=== PATIENT | female | born 1950 | race Caucasian/White ===

== ENCOUNTER 2016-08-29 12:02 | Inpatient (IN) | payer BC ==
[~2016-08-29] VITALS: Ht 165.1 cm; Wt 87.3 kg
[~2016-08-29 12:02] MED LIST: ACYCLOVIR400 MG PO; ALLOPURINOL300 MG PO; AMLODIPINE BESYL5 MG PO; AUGMENTIN500 MG PO; BACTROBAN NASAL1 G1 BOTH NARES; CALTRATE 600 +1 EAC1 PO; CENTRUM SILVER1 EAC3 PO; CIPRO500 MG PO; CITALOPRAM HBR20 MG PO; COMPAZINE10 MG PO; CYANOCOBALAM1000 MCG PO; DICYCLOMINE HCL10 MG PO; DOXYCYCLINE HY100 MG PO; FLUCONAZOLE200 MG PO; HUMULIN R100 UNITS/ SC; LEVOTHYROXINE150 MCG PO; LITHIUM CARBON300 MG PO; LOPERAMIDE2 MG PO; METFORMIN HCL500 M1 PO; NOVOLIN,HU100 UNITS1 SC; OMEPRAZOLE20 MG PO; PREDNISONE20 MG PO; TRAMADOL HCL50 MG PO; VITAMIN D-32000 UNI2 PO; VITAMIN D2000 UNI1 PO; ZANTAC150 MG PO
[2016-08-29 15:26] LABS: HEMATOCRIT 29.7 % (36.0-46.0); MCH 32.5 PG (29.0-34.0); MCHC 31.6 G/DL (30.0-36.0); MCV 102.8 FL (83-99); MEAN PLAT.VOLUME 10.9 uM^3 (9.5-12.4); RBC DIS.WIDTH-SD 49.4 % (39-53); RED BLOOD COUNT 2.89 M/uL (3.80-5.20); WHITE BLOOD COUNT 4.2 K/uL (4.1-10.2)
[2016-08-29 15:30] LABS: CHLORIDE 101 mEq/L (99-109); POTASSIUM 3.4 mEq/L (3.7-5.4); SODIUM 137 mEq/L (136-147)
[2016-08-29 15:33] LABS: GLUCOSE 159 mg/dL (70-99)
[2016-08-29 15:34] LABS: ANION GAP 7 MEQ/L (2-14)
[2016-08-29 15:35] LABS: TOTAL BILIRUBIN 0.3 mg/dL (0.0-1.0)
[2016-08-29 15:36] LABS: ALKALINE PHOSPHATASE 71 IU/L (3-129); GFR ESTIMATE (CALCULATED) 44 mL/min/
[2016-08-29 15:37] LABS: UREA NITROGEN (BUN) 16 mg/dL (9-23)
[2016-08-29 16:16] LABS: ABS NEUTROPHIL COUNT 3.3; ANISOCYTOSIS 1+; ATYPICAL LYMPHOCYTE 3.5 %; BAND NEUTROPHILS 3.5 % (0-8.0); EOSINOPHIL ABS CT 0.1; EOSINOPHILS 2.6 % (0-5.0); HEMATOLOGY COMMENT 1 SN; INSTRUMENT ABS NEUTROPHIL CT 2.9 K/uL; LYMPHOCYTES 8.8 % (15.0-45.0); METAMYELOCYTES 0.9 %; OVALOCYTES 1+; PLATELET CLUMPS PRESENT - PLATELET COUNT APPEARS ADQ.; POLYCHROMASIA 1+; SCHISTOCYTES 1+; SEG.NEUTROPHILS 75.4 % (46.0-76.0); TEAR DROP CELLS 1+
[2016-08-29 16:42] LABS: C-REACTIVE PROTEIN 7.6 MG/L (0-10)
[2016-08-29] MEDS ORDERED: LITHIUM CARBON300 MG PO (18:44)
[2016-08-29] MEDS ORDERED: LEVO-T175 MCG PO (18:45)
[2016-08-29] MEDS ORDERED: METOPROLOL TART25 MG PO (18:47)
[2016-08-29] MEDS ORDERED: FUROSEMIDE20 MG PO (18:51)
[2016-08-29] MEDS ORDERED: ZYVOX600 MG PO (18:53)
[2016-08-30] VITALS (7 sets, daily range): BP systolic 108–150; BP diastolic 55–72
[2016-08-30 07:08] LABS: HEMATOCRIT 27.8 % (36.0-46.0); MCH 32.6 PG (29.0-34.0); MCHC 30.9 G/DL (30.0-36.0); MCV 105.3 FL (83-99); MEAN PLAT.VOLUME 11.3 uM^3 (9.5-12.4); RBC DIS.WIDTH-CV 12.9 % (11.8-14.6); RED BLOOD COUNT 2.64 M/uL (3.80-5.20); WHITE BLOOD COUNT 3.3 K/uL (4.1-10.2)
[2016-08-30 07:34] LABS: ANION GAP 9 MEQ/L (2-14); CHLORIDE 101 MEQ/L (99-109); GFR ESTIMATE (CALCULATED) 44 mL/min/; GLUCOSE 166 mg/dL (70-99); POTASSIUM 3.3 MEQ/L (3.7-5.4); SAMPLE HEMOLYSIS CHECK 0; SAMPLE ICTERIC CHECK 0; SAMPLE LIPEMIA CHECK 0; SODIUM 139 MEQ/L (136-147); UREA NITROGEN (BUN) 13 mg/dL (9-23)
[2016-08-30 07:36] LABS: PLATELET COUNT 123 K/uL (156-360)
[2016-08-30 11:24] LABS: ABS NEUTROPHIL COUNT 2.4; ANISOCYTOSIS 1+; EOSINOPHIL ABS CT 0.1; PLAT.SUFFICIENCY DECREASED; POIKILOCYTOSIS 1+
[2016-08-30 14:54] LABS: METH RESISTANT S AUREUS PCR NEGATIVE (NEGATIVE)
[2016-08-30 15:02] LABS: PROBE CHECK PASS; SPECIMEN PROCESSING CONTROL PASS
[2016-08-30 21:38] LABS: POINT-OF-CARE METER ID UU14162508
[2016-08-31 02:56] VITALS: BP 117/59
[2016-08-31 06:34] LABS: POINT-OF-CARE METER ID UU14162508
[2016-08-31 06:53] LABS: HEMATOCRIT 28.9 % (36.0-46.0); MCH 32.6 PG (29.0-34.0); MCHC 31.1 G/DL (30.0-36.0); MCV 104.7 FL (83-99); PLATELET COUNT 125 K/uL (156-360); RBC DIS.WIDTH-CV 12.8 % (11.8-14.6); RED BLOOD COUNT 2.76 M/uL (3.80-5.20); WHITE BLOOD COUNT 3.1 K/uL (4.1-10.2)
[2016-08-31 07:25] LABS: ANION GAP 8 MEQ/L (2-14); CHLORIDE 105 MEQ/L (99-109); GFR ESTIMATE (CALCULATED) 44 mL/min/; GLUCOSE 166 mg/dL (70-99); POTASSIUM 3.9 MEQ/L (3.7-5.4); SAMPLE HEMOLYSIS CHECK 0; SAMPLE ICTERIC CHECK 0; SAMPLE LIPEMIA CHECK 0; SODIUM 141 MEQ/L (136-147); UREA NITROGEN (BUN) 12 mg/dL (9-23)
[2016-08-31 07:53] VITALS: BP 125/66
[2016-08-31 11:40] VITALS: BP 126/61
[2016-08-31 11:51] LABS: POINT-OF-CARE METER ID UU14162508
[2016-08-31 15:38] VITALS: BP 146/66
[2016-08-31 17:27] LABS: POINT-OF-CARE USER ID STWLMB34
[2016-08-31 19:41] VITALS: BP 130/60
[2016-08-31 23:52] VITALS: BP 133/64
[2016-09-01 04:05] VITALS: BP 126/65
[2016-09-01 07:50] LABS: HEMATOCRIT 29.7 % (36.0-46.0); MCH 32.1 PG (29.0-34.0); MCHC 31.3 G/DL (30.0-36.0); MCV 102.4 FL (83-99); MEAN PLAT.VOLUME 11.7 uM^3 (9.5-12.4); PLATELET COUNT 117 K/uL (156-360); RBC DIS.WIDTH-CV 12.7 % (11.8-14.6); WHITE BLOOD COUNT 3.5 K/uL (4.1-10.2)
[2016-09-01 08:05] VITALS: BP 151/68
[2016-09-01 08:10] LABS: ANION GAP 6 MEQ/L (2-14); CHLORIDE 105 MEQ/L (99-109); GFR ESTIMATE (CALCULATED) 44 mL/min/; GLUCOSE 158 mg/dL (70-99); POTASSIUM 4.4 MEQ/L (3.7-5.4); SAMPLE HEMOLYSIS CHECK 0; SAMPLE ICTERIC CHECK 0; SAMPLE LIPEMIA CHECK 0; SODIUM 137 MEQ/L (136-147); UREA NITROGEN (BUN) 12 mg/dL (9-23)
[2016-09-01 12:05] VITALS: BP 127/59
[2016-09-01 12:17] LABS: POINT-OF-CARE METER ID UU14162508
[2016-09-01 16:00] VITALS: BP 128/59
[2016-09-01 16:34] LABS: POINT-OF-CARE METER ID UU14162508
[2016-09-01 22:09] LABS: POINT-OF-CARE METER ID UU14162508
[2016-09-01 23:35] VITALS: BP 122/60
[2016-09-02 06:57] LABS: POINT-OF-CARE METER ID UU14162508
[2016-09-02 08:00] VITALS: BP 118/72
[2016-09-02 11:49] LABS: POINT-OF-CARE METER ID UU14162508
[2016-09-02 16:00] VITALS: BP 120/56
[2016-09-02 16:40] LABS: POINT-OF-CARE METER ID UU14162508
== END 2016-09-02 20:09 | disposition home or self-care (01) | DRG 580 ==
LOC: EME 12:02 → EDOF 22:22 → 2EASTP 22:22 → 2EAST 23:57 → 2EASTP 23:57
PROVIDERS: Emergency Medicine; Hospitalist; Internal Medicine
PROC: 0W9F0ZZ Drainage of Abdominal Wall, Open Approach (ICD-10-PCS; principal; 2016-08-30)
PROC: 0J980ZZ Drainage of Abdomen Subcutaneous Tissue and Fascia, Open Approach (ICD-10-PCS; 2016-08-31)
DX: L03.311 Cellulitis of abdominal wall (principal); E11.9 Type 2 diabetes mellitus without complications; I10 Essential (primary) hypertension; D64.9 Anemia, unspecified; E03.9 Hypothyroidism, unspecified; D61.818 Other pancytopenia; E78.5 Hyperlipidemia, unspecified; K57.30 Diverticulosis of large intestine without perforation or abscess without bleeding; C83.37 Diffuse large B-cell lymphoma, spleen; B95.62 Methicillin resistant Staphylococcus aureus infection as the cause of diseases classified elsewhere; F31.9 Bipolar disorder, unspecified; Z85.820 Personal history of malignant melanoma of skin; Z92.21 Personal history of antineoplastic chemotherapy; Z79.4 Long term (current) use of insulin; Z98.890 Other specified postprocedural states
CPT/HCPCS: 74177; 76937; 80048; 80053; 80202; 82948; 83605; 85025; 85027; 86140; 87040; 87070; 87075; 87077; 87106; 87147; 87186; 87205; 87641; 99281; 99285; J1644; J1815; J2270; J2543; J3370; J7030; J7050; S0020